=== PATIENT | male | born 1965 | race Caucasian/White ===

== ENCOUNTER 2016-11-29 15:44 | Emergency (ER) | payer MEDICAID ==
[~2016-11-29] VITALS: Ht 170.2 cm; Wt 82.0 kg
[~2016-11-29 15:44] MED LIST: ASPI-1159 PO; LISI10TA5 PO; METF500T4 PO; MULT-1146 PO; OMEP20CA10 PO
[2016-11-29] MEDS ORDERED: ASPIRIN 325MG EC TABLET PO ONE (16:15)
[2016-11-29] MEDS ORDERED: LISINOPRIL 20MG TABLET PO ONE (17:00)
[2016-11-29 17:02] LABS: BASOPHILS % 0.5 % (0.0-2.0); EOSINOPHILS % 0.5 % (0.0-5.0); HEMATOCRIT. 40.2 % (42.0-52.0); HEMOGLOBIN. 13.8 g/dL (14.0-18.0); LYMPHOCYTES % 45.7 % (20.0-50.0); MEAN CORPUSCULAR HEMOGLOBIN 31.5 pg (28.0-32.0); MEAN CORPUSCULAR VOLUME 91.9 fL (80.0-94.0); MEAN PLATELET VOLUME 7.6 fl (7.4-10.4); MONOCYTES % 8.6 % (2.0-8.0); NEUTROPHILS % 44.7 % (40.0-76.0); PLATELET 250 x1000/uL (130-400); RED BLOOD CELL COUNT 4.37 mill/uL (4.7-6.1); RED CELL DISTRIBUTION WIDTH 15.2 % (11.6-14.6)
[2016-11-29 17:05] LABS: CHLORIDE 102 mEq/L (98-107)
[2016-11-29 17:09] LABS: CARBON DIOXIDE 28 mEq/L (21-32)
[2016-11-29 17:16] LABS: TROPONIN I < 0.02 ng/mL (0.00-0.04)
[2016-11-29 17:27] LABS: INR 1.2; PROTHROMBIN TIME 12.2 sec (9.4-11.6)
[2016-11-30 12:31] VITALS: BP 125/70
== END 2016-11-30 12:39 | disposition home or self-care (01) ==
LOC: ER 16:21 → CANBEDREQ 11-30 00:17 → ER 11-30 12:39
DX: I10 Essential (primary) hypertension (principal); E11.65 Type 2 diabetes mellitus with hyperglycemia; R07.89 Other chest pain; E83.51 Hypocalcemia; D64.9 Anemia, unspecified; Z79.84 Long term (current) use of oral hypoglycemic drugs; Z91.14 Patient's other noncompliance with medication regimen; Z59.0 Homelessness
CPT/HCPCS: 36415; 71010; 80053; 83036; 83880; 84484; 85025; 85610; 85651; 93005; 99285; Z7610

== ENCOUNTER 2020-12-12 15:29 | Emergency (ER) | payer MEDICAID ==
[~2020-12-12] VITALS: Ht 170.2 cm; Wt 100.0 kg
[~2020-12-12 15:29] MED LIST changes: -ASPI-1159 PO; +CLOT15CR27 TP; +LACT10SO7 PO; +LEVO750T46 MT; +LISI10TA26 PO; -LISI10TA5 PO; +METF-414 PO; -METF500T4 PO; +METR-167 MT; -MULT-1146 PO; -OMEP20CA10 PO
[2020-12-12 16:52] LABS: BASOPHILS % 0.9 % (0.0-2.0); EOSINOPHILS % 1.3 % (0.0-5.0); HEMATOCRIT. 31.8 % (42.0-52.0); HEMOGLOBIN. 11.2 g/dL (14.0-18.0); LYMPHOCYTES % 28.5 % (20.0-50.0); MEAN CORPUSCULAR HEMOGLOBIN 36.8 pg (28.0-32.0); MEAN CORPUSCULAR VOLUME 104.7 fL (80.0-94.0); MEAN PLATELET VOLUME 8.8 fl (7.4-10.4); NEUTROPHILS % 57.3 % (40.0-76.0); PLATELET 75 x1000/uL (130-400); RED BLOOD CELL COUNT 3.04 mill/uL (4.7-6.1); RED CELL DISTRIBUTION WIDTH 15.8 % (11.6-14.6)
[2020-12-12 16:54] LABS: CHLORIDE 104 mEq/L (98-107)
[2020-12-12] MEDS ORDERED: FLUC200T51 MT (18:59)
[2020-12-12 20:00] VITALS: BP 142/94
== END 2020-12-12 20:05 | disposition home or self-care (01) ==
LOC: ER 15:29
DX: B35.4 Tinea corporis (principal); K70.9 Alcoholic liver disease, unspecified; I49.9 Cardiac arrhythmia, unspecified
CPT/HCPCS: 36415; 80053; 84484; 85025; 93005; 99284

== ENCOUNTER 2021-05-26 10:00 | Inpatient (IN) | payer MEDICAID, OTHER ==
[2021-05-26] VITALS (36 sets, daily range): BP systolic 76–119; BP diastolic 38–73
[~2021-05-26] VITALS: Ht 162.6 cm; Wt 132.9 kg
[~2021-05-26 10:00] MED LIST changes: -LEVO750T46 MT; -METR-167 MT; +OMEP40CA20 MT; +SUCR1ORA15 PO
[2021-05-26] MEDS ORDERED: CEFTRIAXONE 2 G PREMIX 50 ML IV ONE (10:30)
[2021-05-26] MEDS ORDERED: SODIUM CHLORIDE 0.9% 500 ML IV ONE (10:30)
[2021-05-26] MEDS ORDERED: CEFTRIAXONE 2 G in DEXTROSE 5% WATER 50 ML IV NR (10:45)
[2021-05-26 11:34] LABS: MEAN CORPUSCULAR HEMOGLOBIN 26.5 pg (28.0-32.0); MEAN PLATELET VOLUME 7.6 fl (7.4-10.4); PLATELET 97 x1000/uL (130-400); RED BLOOD CELL COUNT 1.22 mill/uL (4.7-6.1); RED CELL DISTRIBUTION WIDTH 27.8 % (11.6-14.6)
[2021-05-26 11:39] LABS: CHLORIDE 104 mEq/L (98-107)
[2021-05-26 11:41] LABS: HEMOGLOBIN. 3.2 g/dL (14.0-18.0)
[2021-05-26 11:43] LABS: ETHANOL BLOOD 47 mg/dL
[2021-05-26 12:14] LABS: PLATELET ESTIMATE DECREASED
[2021-05-26 12:30] LABS: INR 2.3; PARTIAL THROMBOPLASTIN TIME 48.5 sec (23.4-31.0); PROTHROMBIN TIME 23.3 sec (9.6-11.0)
[2021-05-26] MEDS ORDERED: SODIUM CHLORIDE 0.9% 2,000 ML IV ONE (12:30)
[2021-05-26] MEDS ORDERED: PIPERACILLIN/TAZOBACTAM 3.375GM/50ML PREMIX IV ONE (12:30)
[2021-05-26] MEDS ORDERED: PIPERACILLIN/TAZ 3.375G PREMIX 50 ML IV NR (12:30)
[2021-05-26] MEDS ORDERED: OCTREOTIDE 1,000 MCG in SODIUM CHLORIDE 0.9% 100 ML IV ONE (13:30)
[2021-05-26] MEDS ORDERED: PANTOPRAZOLE 80 MG in SODIUM CHLORIDE 0.9% 100 ML IV SCH (13:30)
[2021-05-26] MEDS ORDERED: MAGNESIUM/ALUMINUM HYDROXIDE/SIMETHICONE 30ML UDC PO PRN (15:45)
[2021-05-26] MEDS ORDERED: IPRATROPIUM/ALBUTEROL 0.5-3(2.5)MG/3ML NEB HHN PRN (15:45)
[2021-05-26] MEDS ORDERED: HYDROCODONE/ACETAMINOPHEN 5/325MG TABLET PO PRN (15:45)
[2021-05-26] MEDS ORDERED: ONDANSETRON HCL 4MG/2ML INJ IV PRN (15:45)
[2021-05-26] MEDS ORDERED: LORAZEPAM 2MG/ML CPJ IV PRN (15:45)
[2021-05-26] MEDS ORDERED: PHYTONADIONE 10MG/ML AMP SUBCUT SCH ×2 (16:00→18:00)
[2021-05-26] MEDS ORDERED: NALOXONE HCL 0.4MG/ML VIAL IV PRN (16:00)
[2021-05-26] MEDS: IRON SUCROSE COMPLEX 100 MG/5 ML ML IV SCH (16:28)
[2021-05-26] MEDS: FUROSEMIDE 40MG/4ML VIAL IV SCH (16:29)
[2021-05-26] MEDS: MORPHINE SULFATE 2 MG/ML CPJ (NOT FOR IM USE) IV PRN (16:30)
[2021-05-26 18:00] LABS: TOTAL IRON BINDING CAPACITY 179 ug/dL (250-450)
[2021-05-26 18:15] LABS: FERRITIN 48 ng/mL (22-322)
[2021-05-26] MEDS ORDERED: OCTREOTIDE 1,000 MCG in SODIUM CHLORIDE 0.9% 98 ML IV SCH (18:30)
[2021-05-26] MEDS ORDERED: VANCOMYCIN 2,000 MG in DEXT 5% WATER 500 ML IV NR (18:30)
[2021-05-26] MEDS ORDERED: DEXTROSE 50% WATER 50ML SYRINGE IV PRN (18:30)
[2021-05-26 18:31] LABS: VITAMIN B12 SERUM > 2000.0 pg/mL (211-911)
[2021-05-26] MEDS: PANTOPRAZOLE SODIUM 40 MG/VIAL IV SCH (18:33)
[2021-05-26] MEDS: CEFEPIME 1,000 MG in DEXTROSE 5% WATER 50 ML IV SCH (18:34)
[2021-05-26 18:54] LABS: CLARITY URINE CLEAR (CLEAR); COLOR URINE DARK YELLOW (YELLOW); KETONES URINE TRACE (NEGATIVE); LEUKOCYTE ESTERASE URINE NEGATIVE (NEGATIVE); NITRITE URINE NEGATIVE (NEGATIVE); OCCULT BLOOD URINE NEGATIVE (NEGATIVE); PH URINE 5.5 (4.5-8.0); PROTEIN URINE NEGATIVE (NEGATIVE); SPECIFIC GRAVITY URINE 1.014 (1.005-1.030)
[2021-05-26 18:56] LABS: *AMPHETAMINES SCREEN URINE NEGATIVE (NEGATIVE); *BARBITURATES SCREEN URINE NEGATIVE (NEGATIVE); *BENZODIAZEPINES SCREEN URINE NEGATIVE (NEGATIVE); *COCAINE SCREEN URINE NEGATIVE (NEGATIVE); METHADONE URINE SCREEN NEGATIVE (NEGATIVE); OPIATES URINE SCREEN NEGATIVE (NEGATIVE)
[2021-05-26 18:57] LABS: CANNABINOID URINE SCREEN NEGATIVE (NEGATIVE); PHENCYCLIDINE URINE SCREEN NEGATIVE (NEGATIVE)
[2021-05-26] MEDS: INSULIN LISPRO 100 UNITS/ML SUBCUT SCH (21:00)
[2021-05-26] MEDS ORDERED: CEFEPIME HCL 1000MG/VIAL INJ IM SCH (21:00)
[2021-05-26] MEDS: BLOOD SUGAR DIAGNOSTIC STRIP TEST SCH (21:00)
[2021-05-26] MEDS ORDERED: ALBUMIN HUMAN 25GM/100ML (25%) IV PRN (21:30)
[2021-05-26] MEDS ORDERED: EPOETIN ALFA 4,000 UNIT/ML VIAL SUBCUT NR (22:00)
[2021-05-26] MEDS: LACTULOSE 20G/30ML UDC PO SCH (22:06)
[2021-05-26] MEDS: ACETAMINOPHEN 325MG TABLET PO PRN (22:07)
[2021-05-26 23:36] LABS: CREATINE KINASE 45 IU/L (39-308)
[2021-05-26 23:37] LABS: CREATINE KINASE MB FRACTION 1.6 ng/mL (0.5-3.6)
[2021-05-27] VITALS (92 sets, daily range): BP systolic 68–137; BP diastolic 35–76
[2021-05-27] MEDS: PHENYLEPHRINE 100 MG in DEXT 5% WATER 240 ML IV PRN ×3 (01:08→22:07)
[2021-05-27 05:24] LABS: CHLORIDE 107 mEq/L (98-107)
[2021-05-27 05:32] LABS: HDL CHOLESTEROL 30 mg/dL (40-59)
[2021-05-27 05:34] LABS: LDL CHOLESTEROL 24 mg/dL (5-100)
[2021-05-27 05:36] LABS: CREATINE KINASE 38 IU/L (39-308)
[2021-05-27 05:41] LABS: CREATINE KINASE MB FRACTION 1.2 ng/mL (0.5-3.6)
[2021-05-27] MEDS: BLOOD SUGAR DIAGNOSTIC STRIP TEST SCH ×4 (06:10→21:00)
[2021-05-27] MEDS: INSULIN LISPRO 100 UNITS/ML SUBCUT SCH ×4 (06:10→21:00)
[2021-05-27] MEDS: LACTULOSE 20G/30ML UDC PO SCH ×3 (06:11→22:07)
[2021-05-27] MEDS: ACETAMINOPHEN 325MG TABLET PO PRN (06:12)
[2021-05-27] MEDS: CEFEPIME 1,000 MG in DEXTROSE 5% WATER 50 ML IV SCH ×2 (06:13→17:57)
[2021-05-27] MEDS ORDERED: LIDOCAINE HCL 1% 10 MG/ML 10ML VIAL ONE (09:22)
[2021-05-27] MEDS: PANTOPRAZOLE SODIUM 40 MG/VIAL IV SCH ×2 (09:40→22:08)
[2021-05-27] MEDS: FUROSEMIDE 40MG/4ML VIAL IV SCH (09:40)
[2021-05-27] MEDS: PHYTONADIONE 10MG/ML AMP SUBCUT SCH (09:40)
[2021-05-27] MEDS: FOLIC ACID 1MG TABLET PO SCH (09:41)
[2021-05-27] MEDS: MULTIVITAMINS,THER W-MINERALS TABLET PO SCH (09:41)
[2021-05-27] MEDS: THIAMINE HCL 100MG TABLET PO SCH (09:41)
[2021-05-27] MEDS: SPIRONOLACTONE 50MG TABLET PO SCH (09:46)
[2021-05-27] MEDS: VANCOMYCIN 1.25GM PMX (XELLIA) 250 ML IV SCH ×2 (11:06→22:06)
[2021-05-27] MEDS: MIDODRINE HCL 5MG TABLET PO SCH ×3 (11:06→17:57)
[2021-05-27] MEDS ORDERED: ALBUMIN HUMAN 12.5GM/50ML (25%) IV NR (11:30)
[2021-05-27 12:14] LABS: HEMOGLOBIN. 2.7 g/dL (14.0-18.0); MEAN CORPUSCULAR HEMOGLOBIN 27.7 pg (28.0-32.0); PLATELET 83 x1000/uL (130-400); RED BLOOD CELL COUNT 0.98 mill/uL (4.7-6.1); RED CELL DISTRIBUTION WIDTH 28.6 % (11.6-14.6)
[2021-05-27 12:29] LABS: HEMATOCRIT. 8.6 % (42.0-52.0)
[2021-05-27 12:50] LABS: NUCLEATED RED BLOOD CELLS 2 /100 WBC; PLATELET ESTIMATE DECREASED
[2021-05-27] MEDS ORDERED: EPOETIN ALFA 10000UNITS/ML VIAL SUBCUT ONE (15:45)
[2021-05-27] MEDS ORDERED: EPOETIN ALFA-EPBX 4,000 UNIT/ML VIAL SUBCUT NR (17:00)
[2021-05-27] MEDS ORDERED: EPOETIN ALFA-EPBX 10,000 UNIT/ML VIAL SUBCUT NR (17:00)
[2021-05-27] MEDS: IRON SUCROSE COMPLEX 100 MG/5 ML ML IV SCH (19:04)
[2021-05-27] MEDS: MORPHINE SULFATE 2 MG/ML CPJ (NOT FOR IM USE) IV PRN (22:08)
[2021-05-28] VITALS (94 sets, daily range): BP systolic 90–123; BP diastolic 45–90
[2021-05-28 05:39] LABS: MEAN CORPUSCULAR HEMOGLOBIN 28.4 pg (28.0-32.0); MEAN CORPUSCULAR VOLUME 89.8 fL (80.0-94.0); MEAN PLATELET VOLUME 7.7 fl (7.4-10.4); PLATELET 88 x1000/uL (130-400); RED BLOOD CELL COUNT 1.02 mill/uL (4.7-6.1); RED CELL DISTRIBUTION WIDTH 29.3 % (11.6-14.6)
[2021-05-28 05:55] LABS: CHLORIDE 107 mEq/L (98-107); HEMATOCRIT. 9.2 % (42.0-52.0); HEMOGLOBIN. 2.9 g/dL (14.0-18.0)
[2021-05-28] MEDS: LACTULOSE 20G/30ML UDC PO SCH ×4 (05:58→22:00)
[2021-05-28] MEDS: BLOOD SUGAR DIAGNOSTIC STRIP TEST SCH ×4 (05:59→21:56)
[2021-05-28] MEDS: INSULIN LISPRO 100 UNITS/ML SUBCUT SCH ×4 (05:59→21:00)
[2021-05-28] MEDS: CEFEPIME 1,000 MG in DEXTROSE 5% WATER 50 ML IV SCH ×2 (06:01→17:17)
[2021-05-28] MEDS: PHENYLEPHRINE 100 MG in DEXT 5% WATER 240 ML IV PRN ×3 (06:49→22:42)
[2021-05-28 08:50] LABS: INR 2.5; PROTHROMBIN TIME 25.1 sec (9.6-11.0)
[2021-05-28 08:50] LABS: PLATELET ESTIMATE DECREASED
[2021-05-28] MEDS ORDERED: POTASSIUM CHLORIDE 20MEQ TABLET SR PO NR (09:00)
[2021-05-28] MEDS: FOLIC ACID 1MG TABLET PO SCH ×2 (09:00→13:58)
[2021-05-28] MEDS: MULTIVITAMINS,THER W-MINERALS TABLET PO SCH ×2 (09:00→13:59)
[2021-05-28] MEDS: THIAMINE HCL 100MG TABLET PO SCH ×2 (09:00→13:59)
[2021-05-28] MEDS: PANTOPRAZOLE SODIUM 40 MG/VIAL IV SCH ×2 (09:02→21:57)
[2021-05-28] MEDS: PHYTONADIONE 10MG/ML AMP SUBCUT SCH (09:03)
[2021-05-28] MEDS: FUROSEMIDE 40MG/4ML VIAL IV SCH (09:03)
[2021-05-28] MEDS: VANCOMYCIN 1.25GM PMX (XELLIA) 250 ML IV SCH (09:10)
[2021-05-28] MEDS ORDERED: KCL 20MEQ/100ML PREMIX 100 ML IV NR (10:00)
[2021-05-28] MEDS ORDERED: POTASSIUM CHLORIDE INJ 40 MEQ in DEXT 5% WATER 250 ML IV ONE (13:00)
[2021-05-28] MEDS: MIDODRINE HCL 5MG TABLET PO SCH ×2 (13:58→17:17)
[2021-05-28] MEDS: SPIRONOLACTONE 50MG TABLET PO SCH (13:58)
[2021-05-28] MEDS: KCL 20MEQ/100ML PREMIX 100 ML IV SCH ×2 (14:54→19:23)
[2021-05-28] MEDS: IRON SUCROSE COMPLEX 100 MG/5 ML ML IV SCH (17:17)
[2021-05-28] MEDS ORDERED: EPOETIN ALFA 10000UNITS/ML VIAL SUBCUT SCH (21:00)
[2021-05-28] MEDS: EPOETIN ALFA-EPBX 10,000 UNIT/ML VIAL SUBCUT SCH (21:57)
[2021-05-28] MEDS: EPOETIN ALFA 2,000 UNIT/ML VIAL SUBCUT SCH (21:57)
[2021-05-28] MEDS: MORPHINE SULFATE 2 MG/ML CPJ (NOT FOR IM USE) IV PRN (22:40)
[2021-05-29] VITALS (91 sets, daily range): BP systolic 47–118; BP diastolic 19–89
[2021-05-29] MEDS ORDERED: VANCOMYCIN 1G PREMIX 200 ML IV SCH
[2021-05-29 05:36] LABS: MEAN CORPUSCULAR HEMOGLOBIN 29.5 pg (28.0-32.0); MEAN PLATELET VOLUME 7.7 fl (7.4-10.4); PLATELET 90 x1000/uL (130-400); RED BLOOD CELL COUNT 1.03 mill/uL (4.7-6.1); RED CELL DISTRIBUTION WIDTH 33.5 % (11.6-14.6)
[2021-05-29] MEDS: LACTULOSE 20G/30ML UDC PO SCH (06:00)
[2021-05-29 06:08] LABS: CHLORIDE 106 mEq/L (98-107)
[2021-05-29] MEDS: INSULIN LISPRO 100 UNITS/ML SUBCUT SCH ×4 (06:11→21:00)
[2021-05-29] MEDS: BLOOD SUGAR DIAGNOSTIC STRIP TEST SCH ×4 (06:11→21:39)
[2021-05-29] MEDS: CEFEPIME 1,000 MG in DEXTROSE 5% WATER 50 ML IV SCH ×2 (06:12→18:02)
[2021-05-29 07:28] LABS: HEMATOCRIT. 9.7 % (42.0-52.0)
[2021-05-29] MEDS: MULTIVITAMINS,THER W-MINERALS TABLET PO SCH (08:30)
[2021-05-29] MEDS: FUROSEMIDE 40MG/4ML VIAL IV SCH (08:30)
[2021-05-29] MEDS: FOLIC ACID 1MG TABLET PO SCH (08:30)
[2021-05-29] MEDS: PHYTONADIONE 10MG/ML AMP SUBCUT SCH (08:30)
[2021-05-29] MEDS: PANTOPRAZOLE SODIUM 40 MG/VIAL IV SCH ×2 (08:30→21:47)
[2021-05-29] MEDS: THIAMINE HCL 100MG TABLET PO SCH (08:31)
[2021-05-29] MEDS: SPIRONOLACTONE 50MG TABLET PO SCH (08:31)
[2021-05-29] MEDS: MIDODRINE HCL 5MG TABLET PO SCH ×2 (08:31→12:43)
[2021-05-29] MEDS: PHENYLEPHRINE 100 MG in DEXT 5% WATER 240 ML IV PRN ×2 (08:32→16:06)
[2021-05-29 13:33] LABS: NUCLEATED RED BLOOD CELLS 5 /100 WBC
[2021-05-29 13:34] LABS: PLATELET ESTIMATE DECREASED
[2021-05-29] MEDS: MORPHINE SULFATE 2 MG/ML CPJ (NOT FOR IM USE) IV PRN (14:26)
[2021-05-29] MEDS ORDERED: POTASSIUM CHLORIDE INJ 40 MEQ in DEXT 5% WATER 250 ML IV ONE (15:45)
[2021-05-29] MEDS: IRON SUCROSE COMPLEX 100 MG/5 ML ML IV SCH (16:04)
[2021-05-29] MEDS ORDERED: MIDODRINE HCL 5MG TABLET PO SCH (17:00)
[2021-05-29] MEDS: KCL 20MEQ/100ML X 2 FOR TOTAL KCL 40MEQ/200ML IV SCH ×2 (18:01→18:38)
[2021-05-29] MEDS ORDERED: VASOPRESSIN 20 UNIT in SODIUM CHLORIDE 0.9% 99 ML IV PRN (20:15)
[2021-05-29] MEDS: EPOETIN ALFA 2,000 UNIT/ML VIAL SUBCUT SCH (21:47)
[2021-05-29] MEDS: EPOETIN ALFA-EPBX 10,000 UNIT/ML VIAL SUBCUT SCH (21:47)
[2021-05-30] MEDS ORDERED: LACTULOSE 20G/30ML UDC PO SCH (09:00)
== END 2021-05-29 23:21 | DRG 720 ==
LOC: ER 10:00 → MICUNO 12:28 → EDBEDREQ 12:31 → EDBEDREQSVC 12:31 → EDBEDREQTM 12:31 → ENRESERV 13:02
PROVIDERS: ADMIT Internal Medicine; ATTEND Internal Medicine
PROC: 02HV33Z Insertion of Infusion Device into Superior Vena Cava, Percutaneous Approach (ICD-10-PCS; principal; 2021-05-27)
PROC: B548ZZA Ultrasonography of Superior Vena Cava, Guidance (ICD-10-PCS; 2021-05-27)
DX: A41.9 Sepsis, unspecified organism (principal); J96.01 Acute respiratory failure with hypoxia; R65.21 Severe sepsis with septic shock; D61.818 Other pancytopenia; K70.40 Alcoholic hepatic failure without coma; E43 Unspecified severe protein-calorie malnutrition; K65.2 Spontaneous bacterial peritonitis; F10.129 Alcohol abuse with intoxication, unspecified; Y90.2 Blood alcohol level of 40-59 mg/100 ml; J18.9 Pneumonia, unspecified organism; D50.9 Iron deficiency anemia, unspecified; E11.9 Type 2 diabetes mellitus without complications; Z51.5 Encounter for palliative care; Z66 Do not resuscitate; I11.9 Hypertensive heart disease without heart failure; J81.1 Chronic pulmonary edema; K31.89 Other diseases of stomach and duodenum; D68.9 Coagulation defect, unspecified; R16.1 Splenomegaly, not elsewhere classified; R91.8 Other nonspecific abnormal finding of lung field; E86.9 Volume depletion, unspecified; K74.60 Unspecified cirrhosis of liver; K76.6 Portal hypertension; R18.8 Other ascites; Z20.822 Contact with and (suspected) exposure to COVID-19; Z68.43 Body mass index [BMI] 50.0-59.9, adult; Z82.49 Family history of ischemic heart disease and other diseases of the circulatory system
CPT/HCPCS: 36415; 71045; 76700; 76937; 80048; 80053; 80061; 80202; 80305; 80320; 81003; 82140; 82270; 82550; 82553; 82607; 82728; 82746; 82962; 83540; 83550; 83605; 83880; 84132; 84145; 84484; 85025; 85044; 86850; 86900; 86920; 87426; 93005; 93970; 99291; A6261; C1725; C9113; J0692; J0696; J0885; J1815; J1940; J2270; J2354; J2370; J2543; J3370; J3430; J3480; J3490; J7030; J7040; J7050; J7060; P9047; G0480